=== PATIENT | male | born 1965 | race Caucasian/White ===

== ENCOUNTER 2017-03-24 12:37 | Emergency (ER) | payer MEDICAID, SELFPAY ==
[2017-03-24 12:38] VITALS: BP 144/102; PULSE 80; RESP 16; TEMP 36.5; O2SAT 94; BMI 23.5
--- NOTE | 2017-03-24 12:51 | ED.DCSUM_ITS ---
- ER Visit Summary Date of Service: 03/24/17 Chief Complaint: Food stuck in throat History of Present Illness: The patient is a 51 M who was eating roast beef for lunch and feels like some stuck in his throat. He has a history of this in the past. He is scheduled for an EGD in a couple of weeks. He tried drinking water and jumping up and down but it did not help. He regurgitated back the water he tried to swallow. Denies any other pain. Physical Examination: Vital signs reviewed. HEENT exam unremarkable. Heart is regular rate and rhythm without murmurs. Lungs are clear to auscultation. Abdomen is soft and nontender. Extremities reveal no edema. Skin exam normal. Neurologic exam normal. Test Results: None indicated Emergency Department Course and Treatment: Patient was given IV glucagon and Coca-Cola. After about 20 minutes he felt the food go down his esophagus into the stomach. He is tolerating p.o. at this time. Patient already has an outpatient EGD scheduled. I will put him on a PPI and he will follow-up with his surgeon Treatment Plan: [] Disposition: Discharge Impression: Esophageal food impaction This note was generated with [employer] dictation software. It may contain incorrect words, spelling, and punctuation that were not noted in review of the chart prior to signing ED Disposition - Plan for ED Patient: Chief Complaint: Foreign Body Referrals: NOT,DEFINED [NON-STAFF] -
[2017-03-24] MEDS: Glucagon 1 MG/ML Syringe IV (13:05)
--- NOTE | 2017-03-24 13:41 | ED.RN ---
pt rings wang. states the roastbeef went down. pt sucessfully drinking
--- NOTE | 2017-03-24 13:55 | ED.DEP ---
ED Disposition - Plan for ED Patient: Disposition: Home or Assisted Living Chief Complaint: Foreign Body Instructions: ED Foreign Body Esophageal Rslv Prescriptions: Omeprazole [Prilosec] 20 mg PO DAILY #30 cap Referrals: NOT,DEFINED [NON-STAFF] -
[2017-03-24 14:14] VITALS: BP 130/74; PULSE 68; RESP 18; O2SAT 97
== END 2017-03-24 14:20 | disposition home or self-care (01) ==
PROVIDERS: Emergency Provider Emergency Medicine
DX: T18.128A Food in esophagus causing other injury, initial encounter (principal); X58.XXXA Exposure to other specified factors, initial encounter; Y93.89 Activity, other specified; Y92.9 Unspecified place or not applicable
CPT/HCPCS: 96374; 99283; A4216; J1610

== ENCOUNTER → 2017-04-07 08:17 | Outpatient (CLI) | payer MEDICAID, SELFPAY ==
[2017-03-13 13:43] VITALS: BP 112/75; BMI 22.7
--- NOTE | 2017-04-07 08:30 | RAD_ITS ---
STUDY: X-RAY - ESOPHAGUS (BARIUM SWALLOW) WITH FLUOROSCOPY REASON FOR EXAM: Male, 51 years old. Dysphagia for solids. TECHNIQUE: 12 view(s) of the esophagus were obtained following swallowing of barium. FLUOROSCOPY TIME (if supplied): (0:47) minutes/seconds COMPARISON: None. FINDINGS: There is no demonstrated esophageal foreign body. There is no demonstrated stricture or mucosal abnormality. Normal gastroesophageal junction, without a demonstrated hiatal hernia. The patient ingested a 12 mm tablet of barium without any difficulty. Normal visualized aortic arch and descending thoracic aorta. Normal visualized pulmonary parenchyma. Normal visualized osseous structures of the thorax. IMPRESSION: Normal plain film x-ray examination (barium swallow) of the esophagus. Electronically Signed: Jon Gallardo MD at 9:51 EST Tel [phone], Service support , STUDY: AIR-CONTRAST UPPER GI SERIES. REASON FOR EXAM: Male, 51 years old. Six-month history of dysphagia for solids. FLUOROSCOPY TIME (if supplied): (0:47) minutes/seconds TECHNIQUE: The patient ingested barium. Multiple images of the esophagus, stomach and duodenum were obtained. COMPARISON: None. FINDINGS: The esophagus is unremarkable. There is no evidence of gastroesophageal reflux. No mass lesion is seen. The stomach and duodenum are unremarkable as well. RAD/Upper GI w/BA Swallow IMPRESSION: Unremarkable air-contrast upper GI series. Electronically Signed: Jon Gallardo MD at 9:53 EST Tel [phone], Service support ,
== END ==
PROVIDERS: Visit Provider Surgery
DX: R13.10 Dysphagia, unspecified (principal)
CPT/HCPCS: 74246

== ENCOUNTER → 2017-04-11 16:19 | Outpatient (CLI) | payer MEDICAID, SELFPAY ==
--- NOTE | 2017-04-11 16:25 | EKG12_ITS ---
Test Reason : MEDS Blood Pressure : / mmHG Vent. Rate : 074 BPM Atrial Rate : 074 BPM P-R Int : 178 ms QRS Dur : 086 ms QT Int : 384 ms P-R-T Axes : 072 043 062 degrees QTc Int : 426 ms Normal sinus rhythm Normal ECG Confirmed by LUCIAN SANTAMARIA, MARILEE ([id number]), technical editor VIVI ÁLVAREZ ([id number]) on 04/15/2017 3:47:44 PM Referred By: OUT DOCTOR Confirmed By:MARILEE EPSTEIN MD
== END ==
DX: Z79.891 Long term (current) use of opiate analgesic (principal)
CPT/HCPCS: 93005

== ENCOUNTER 2017-04-14 06:53 | Day surgery (SDC) | payer MEDICAID, SELFPAY ==
[2017-03-13 13:43] VITALS: BP 112/75; BMI 22.7
[2017-04-14 07:19] VITALS: BP 113/83; PULSE 75; RESP 16; TEMP 36.6; O2SAT 100; BMI 24.0
--- NOTE | 2017-04-14 08:28 | GASB_PTH ---
PATIENT: SANA GUIDRY Jr. LOC: EN U#:[id number] AGE/SX: 51/M ROOM: RE04/14/[address]: Dr. Aliyah Leija MD : 1965 BED: DIS: 04/14/2017 SPEC #: [id number] RECD: 04/14/17 11:03 STATUS: ELLA SERJIO #: [id number] CRISTAL: 04/14/17 08:[address]: Aliyah Leija DEPT: SURGICAL PATHOLOGY RECD BY: Foreign Ewing ENTERED: 04/14/17 11:50 SP TYPE: Gastric Bx OTHR DR: Taniya [facility] Tissues: A - Gastric mucous membrane B - Sigmoid colon biopsy C - Rectum, NOS Procedures: Special Stain Group II Surgery Specimen Level IV Alcian Blue/PAS (control) HEADER OPERATION: EGD with biopsy and colonoscopy with polypectomy PRE-OP DIAGNOSIS: Dysphagia TISSUE SUBMITTED: A ? GE junction biopsy, B ? Sigmoid polyps, C ? Rectum polyps MICROSCOPIC DIAGNOSIS A. Gastroesophageal junction, biopsy: Fragments of gastric mucosa with chronic and focal acute inflammation. Focal squamous epithelium with changes of reflux. No evidence of intestinal metaplasia. B. Sigmoid colon polyps, biopsy: Cauterized fragments of colonic mucosa with focal adenomatous change. C. Rectal polyps, biopsy: Fragments of hyperplastic polyp. AM:leatha 04/15/17 COMMENT A. Alcian blue/PAS stain with matched control supports the above diagnosis. MICROSCOPIC DESCRIPTION Slides are reviewed. GROSS DESCRIPTION A - Received in fixative is one container labeled with the patient's name and designated GE junction biopsy. The specimen consists of one irregular fragment of light adrian soft tissue that measures 0.3 x 0.3 x 0.1 cm. The specimen is totally submitted in one cassette. B - Received in fixative is one container labeled with the patient's name and designated sigmoid polyp. The specimen consists of multiple irregular fragments of light adrian soft tissue that in aggregate measure 0.5 x 0.2 x 0.1 cm. The specimen is totally submitted in one cassette. C - Received in fixative is one container labeled with the patient's name and designated rectum polyp biopsy. The specimen consists of multiple irregular fragments of light adrian soft tissue that in aggregate measure 0.8 x 0.9 x 0.2 cm. The specimen is totally submitted in one cassette. / DAYANNA:leatha 04/14/17 TC:5 CPT: 55986 x3, 00494
--- NOTE | 2017-04-14 08:28 | GASB_PTH ---
PATIENT: SANA GUIDRY Jr. LOC: EN U#:[id number] AGE/SX: 51/M ROOM: RE04/14/[address]: Dr. Aliyah Leija MD : 1965 BED: DIS: 04/14/2017 SPEC #: [id number] RECD: 04/14/17 11:03 STATUS: ELLA SERJIO #: [id number] CRISTAL: 04/14/17 08:[address]: Aliyah Leija DEPT: SURGICAL PATHOLOGY RECD BY: Foreign Ewing ENTERED: 04/14/17 11:50 SP TYPE: Gastric Bx OTHR DR: Taniya [facility] Tissues: A - Gastric mucous membrane B - Sigmoid colon biopsy C - Rectum, NOS Procedures: Special Stain Group II Surgery Specimen Level IV Alcian Blue/PAS (control) HEADER OPERATION: EGD with biopsy and colonoscopy with polypectomy PRE-OP DIAGNOSIS: Dysphagia TISSUE SUBMITTED: A ? GE junction biopsy, B ? Sigmoid polyps, C ? Rectum polyps MICROSCOPIC DIAGNOSIS A. Gastroesophageal junction, biopsy: Fragments of gastric mucosa with chronic and focal acute inflammation. Focal squamous epithelium with changes of reflux. Focal intestinal metaplasia present. B. Sigmoid colon polyps, biopsy: Cauterized fragments of colonic mucosa with focal adenomatous change. C. Rectal polyps, biopsy: Fragments of hyperplastic polyp. AM:rg 04/15/17 AM: 05/07/17 COMMENT A. Alcian blue/PAS stain with matched control supports the above diagnosis. Case has been reviewed in consultation with Dr. Freed who concurs with the above diagnosis. IDC:SJ MICROSCOPIC DESCRIPTION Slides are reviewed. GROSS DESCRIPTION A - Received in fixative is one container labeled with the patient's name and designated GE junction biopsy. The specimen consists of one irregular fragment of light adrian soft tissue that measures 0.3 x 0.3 x 0.1 cm. The specimen is totally submitted in one cassette. B - Received in fixative is one container labeled with the patient's name and designated sigmoid polyp. The specimen consists of multiple irregular fragments of light adrian soft tissue that in aggregate measure 0.5 x 0.2 x 0.1 cm. The specimen is totally submitted in one cassette. C - Received in fixative is one container labeled with the patient's name and designated rectum polyp biopsy. The specimen consists of multiple irregular fragments of light adrian soft tissue that in aggregate measure 0.8 x 0.9 x 0.2 cm. The specimen is totally submitted in one cassette. / SJ:rg 04/14/17 TC:5 CPT: 02376 x3, 57246
[2017-04-14 09:22] VITALS: BP 103/70; BP 113/83; PULSE 59; RESP 16; TEMP 36.4; O2SAT 97
--- NOTE | 2017-04-14 09:23 | PCM.OPRPT ---
Report of Operation Date of Procedure: 04/14/17 Pre-Operative Diagnosis: Dysphasia, screening for colon cancer Post-Operative Diagnosis: Dysphasia, GERD, sigmoid polyps ?2, rectal polyps ?5 Surgery/Procedure Performed:: EGD with biopsy, colonoscopy with snare polypectomy Type of Anesthesia:: MAC Anesthesiologist: Angelo Youssef Specimen's removed: 1. GE junction, 2. Sigmoid polyps, 3. Rectal polyps Estimated Blood Loss (mL): Minimal Description of Procedure: Procedure: EGD with biopsy After obtaining informed consent, the endoscope was passed under direct visualization. Throughout the procedure, patient's blood pressure, pulse, oxygen saturations were monitored continuously by anesthesia. The endoscope was introduced through the mouth and advanced to the 2nd part of the duodenum. The upper GI endoscopy was accomplished without difficulty. Patient tolerated procedure well. Findings: Mild change of mucosa found at the GE junction, proceed. Biopsies were taken with cold forcep biopsy for histology. Estimated blood loss was minimal. The duodenum was normal. Impression: 1. Mild change of mucosa at GE junction. Biopsied. 2. Normal esophagus 3. Normal examined duodenum Recommendations: Await biopsies Procedure: Colonoscopy with snare Polypectomy After reviewing the risks benefits, the patient was deemed in satisfactory condition to undergo procedure. After obtaining informed consent, the scope was passed under direct visualization. Throughout the procedure, the patient's blood pressure pulse and position saturations were monitored continuously anesthesia. The colonoscope was introduced through the anus and advanced to the cecum, identified by the appendiceal orifice, IC valve and transillumination. The colonoscopy was performed without difficulty. The patient tolerated procedure well. Quality of bowel prep was good. Findings: The perianal and digital rectal exam were normal. Couple small sessile polyps were found in the sigmoid colon laser removed with snare polypectomy as well as cold forceps biopsies. Additional 5 rectal polyps also small sessile were removed with either the snare polypectomy or the cold forceps biopsy. Otherwise the colon (entire examined portion) appeared normal. Retroflexed view of the distal rectum and anal verge was normal and showed no anal or rectal abnormalities Impression: 1. Sigmoid colon polyps ?2, rectal colon polyp ?5 all small sessile, removed. 2. The distal rectal and anal verge were normal on retroflexed view. Recommendations: Await biopsies Repeat colonoscopy in 3-5 years for screening purposes depending on biopsies - Complications none
[2017-04-14 09:27] VITALS: BP 109/74; BP 113/83; PULSE 64; RESP 16; O2SAT 99
[2017-04-14 09:32] VITALS: BP 104/79; BP 113/83; PULSE 61; RESP 16; O2SAT 95
[2017-04-14 09:37] VITALS: BP 113/83; BP 119/87; PULSE 60; RESP 16; TEMP 36.6; O2SAT 98
[2017-04-14 10:07] VITALS: BP 113/83
== END 2017-04-14 10:13 | disposition home or self-care (01) ==
LOC: EN 06:54 → AC 06:56
PROVIDERS: Visit Provider Surgery
PROC: 0DJD8ZZ Inspection of Lower Intestinal Tract, Via Natural or Artificial Opening Endoscopic (ICD-10-PCS; CPT 45378; principal; 2017-04-14 07:55)
DX: Z12.11 Encounter for screening for malignant neoplasm of colon (principal); D12.5 Benign neoplasm of sigmoid colon; K62.1 Rectal polyp; K21.0 Gastro-esophageal reflux disease with esophagitis; R13.10 Dysphagia, unspecified; Z87.891 Personal history of nicotine dependence
CPT/HCPCS: 43239; 45380; 45385; 88305; 88313; J7120

== ENCOUNTER 2017-04-27 10:29 | Emergency (ER) | payer MEDICAID, SELFPAY ==
[2017-04-27 10:29] VITALS: BP 125/63; PULSE 84; RESP 16; TEMP 36.6; O2SAT 96; BMI 24.9
--- NOTE | 2017-04-27 10:47 | RAD_ITS ---
STUDY: X-RAY CHEST REASON FOR EXAM: Male, 51 years old. Cough. TECHNIQUE: PA and lateral views of the chest. COMPARISON: Prior comparison studies are not available for review at this time. FINDINGS: There is hyperinflation of the lungs consistent with chronic obstructive lung disease (COPD). There is mild interstitial thickening visible in both lungs possibly secondary to pulmonary fibrosis. There may be a bilateral basilar interstitial consolidations and peribronchial cuffing. There is no demonstrated pleural abnormality. There is a well-circumscribed lucency apparently within the anterior mediastinum that may represent a large bleb or bulla. Normal size heart. Normal mediastinum and talia. There is prominence of the pulmonary hilar arteries without peripheral pulmonary vascular congestion. There is atherosclerotic calcification of the aortic arch with tortuosity. There is demineralization of the osseous structures. Multiple plate and screws are visible in the region of the left shoulder probably related to previous open reduction and internal fixation. There is no demonstrated abnormality of the visualized soft tissue structures of the upper abdomen. RAD/Chest PA and Lateral IMPRESSION: COPD with questionable bilateral basilar interstitial consolidations. Differential considerations include bronchitis, viral infection or mycoplasma pneumonitis. Electronically Signed: Laura Rice MD at 11:39 EDT , Service support ,
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
[2017-04-27 10:56] VITALS: PULSE 80; RESP 16
[2017-04-27] MEDS: Ipratropium/Albuterol Sulfate 3 ML AMPUL.NEB INHALATION (10:56)
--- NOTE | 2017-04-27 11:56 | ED.DEP ---
ED Disposition - Plan for ED Patient: Chief Complaint: Cold Sx Instructions: ED Upper Resp Infec Abx Tx, Pneumonia Treatment Prescriptions: Albuterol Inhaler [Ventolin Hfa] 1 - 2 puff INHALATION Q4H PRN PRN #1 inhaler PRN Reason: Wheezing Azithromycin [Zithromax Z-Antwon] 250 mg PO UD #1 box Referrals: [facility],Taniya Manning [Primary Care Provider] -
[2017-04-27 12:05] VITALS: BP 128/62; PULSE 82; RESP 18; O2SAT 98
== END 2017-04-27 12:09 | disposition home or self-care (01) ==
PROVIDERS: Emergency Provider Emergency Medicine
DX: J18.9 Pneumonia, unspecified organism (principal); J06.9 Acute upper respiratory infection, unspecified; K12.2 Cellulitis and abscess of mouth
CPT/HCPCS: 71046; 94640; 99282

== ENCOUNTER 2017-09-08 07:17 | Emergency (ER) | payer MEDICAID, SELFPAY ==
[2017-09-08 07:17] VITALS: BP 140/85; PULSE 86; RESP 16; TEMP 37.2; O2SAT 97; BMI 23.7
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
== END 2017-09-08 09:13 | disposition home or self-care (01) ==
PROVIDERS: Emergency Provider Emergency Medicine
DX: S16.1XXA Strain of muscle, fascia and tendon at neck level, initial encounter (principal); V59.40XA Driver of pick-up truck or van injured in collision with unspecified motor vehicles in traffic accident, initial encounter; Y93.89 Activity, other specified; Y92.410 Unspecified street and highway as the place of occurrence of the external cause; Z72.0 Tobacco use
CPT/HCPCS: 72040; 99284

== ENCOUNTER 2018-10-10 07:58 | Observation (INO) | payer MEDICAID, SELFPAY ==
[2018-10-10] VITALS (9 sets, daily range): BP systolic 125–158; BP diastolic 61–88; PULSE 70–92; RESP 14–18; TEMP 36.2–36.9; O2SAT 93–99; BMI 22.7; BMI 24.3; BMI 25.0; BMI 25.1
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
--- NOTE | 2018-10-10 08:10 | EKG12_ITS ---
Test Reason : SOB Blood Pressure : / mmHG Vent. Rate : 073 BPM Atrial Rate : 073 BPM P-R Int : 184 ms QRS Dur : 076 ms QT Int : 386 ms P-R-T Axes : 079 063 075 degrees QTc Int : 425 ms Normal sinus rhythm Normal ECG Confirmed by ANTWAN SANTAMARIA, CELINA ([id number]), editorial manager JADA COBURN ([id number]) on 10/13/2018 11:46:55 AM Referred By: ARELY Confirmed By:CELINA MONCADA MD
[2018-10-10] MEDS: 0.9% Normal Saline 1,000 ML 150 ML IV ×4 (08:17→23:22)
[2018-10-10] MEDS: Aspirin 81 MG TAB.CHEW 324 MG PO (08:17)
[2018-10-10 08:26] LABS: Absolute Lymphocyte Count 0.77 X10^3/uL (0.83-4.51); Absolute Neutrophil Count 3.4 X10^3/uL (2.0-7.7); Basophil# 0.02 X10^3/uL; Basophil% 0.4 % (0-1); Eosinophil# 0.17 X10^3/uL; Eosinophils% 3.5 % (0-5); Hematocrit 45.2 % (40-54); Hemoglobin 15.5 g/dL (13.0-16.5); Lymphocyte # 0.77 X10^3/ul (4.0); Lymphocyte % 15.8 % (19-41); Mean Corp Hgb Conc 34.3 g/dL (32-36); Mean Corpuscular Hgb 33.7 pg (27.0-32.0); Mean Corpuscular Volume 98.3 fL (80-94); Mean Platelet Vol. 8.3 fl (6.2-12.0); Monocyte% 10.3 % (0-10); NRBC Flagged by Analyzer 0 % (0-5); Neutrophil % 69.8 % (47-70); Platelet Count 302 K/mm3 (150-450); RBC Distribution Width CV 13.2 % (11.6-14.6); RBC Distribution Width SD 47.8 fl (35.1-43.9); White Blood Count 4.9 K/mm3 (4.4-11.0)
[2018-10-10 08:44] LABS: Anion Gap 5 (5-15); BUN 18 mg/dL (7-18); BUN/Creat Ratio 19.2 RATIO (10-20); Calcium,Total 8.6 mg/dL (8.5-10.1); Chloride 107 mmol/L (98-107); Creatinine, Serum 0.94 mg/dL (0.70-1.30); EST Glomerular Filtration Rate 89 mL/min (>60); Est Glom Filt Rate - Afr Amer 108 mL/min (>60); Estimated Creatinine Clearance 93.84 ml/min; Glucose 104 mg/dL (74-106); Potassium 4.4 mmol/L (3.5-5.1); Sodium Level 140 mmol/L (136-145)
--- NOTE | 2018-10-10 09:13 | RAD_ITS ---
STUDY: X-RAY CHEST REASON FOR EXAM: Male, 52 years old. Post Chest Tube left pneumothorax. TECHNIQUE: Single AP portable view of the chest. COMPARISON: 10 October 2018. FINDINGS: Left chest tube in place with Completely resolved left pneumothorax with minimal apical pneumothorax remaining. The lungs are clear and expanded. There is no demonstrated pleural abnormality. Normal size heart. Normal mediastinum and talia. Normal visualized pulmonary arteries. Normal visualized aortic arch and descending thoracic aorta. Normal visualized thoracic spine. Normal visualized ribs, clavicles, and shoulders. There is no demonstrated abnormality of the visualized soft tissue structures of the upper abdomen. RAD/Chest 1 View (Portable) IMPRESSION: Left chest tube in place with near completely resolved left pneumothorax compared to previous with minimal apical pneumothorax remaining. Electronically Signed: Mike Anna DO at 9:39 EDT , Service support ,
[2018-10-10] MEDS: LORazepam 2 MG/ML Syringe 1 MG IV (09:23)
[2018-10-10] MEDS: HYDROmorphone 1 MG/ML Syringe IV (09:23)
--- NOTE | 2018-10-10 09:50 | ED.VISSUMM ---
- ER Visit Summary Date of Service: 10/10/18 Chief Complaint: Chest pain History of Present Illness: The patient is a 52 M with no primary care physician. He reports that at 245 he woke from sleep and states that he had chest pain at that time. States that he was groggy and did not think much of it. Went back to sleep. Woke up at 430 this morning with worsening pain that he describes as a pressure. It is 8 out of 10 at worst and 6 out of 10 currently. Is worsened by exertion and bending over. Is relieved by nothing. Reports he has been nauseated. He has been short of breath as well. Patient reports that he is never had anything like this before. He denies any chest pain or change in dyspnea exertion in the past month. He does have a history of smoking. However, he reports that he quit 7 years ago. He denies any fever or chills. He reports he has a mild cough that began this morning only. It is nonproductive. He denies any other complaints. Physical Examination: Vitals: Stable. Afebrile. General: Well-nourished and well-developed. Head: Normocephalic atraumatic. Neck: Supple, no lymphadenopathy. No JVD. Nontender. Cardiovascular: Regular rate and rhythm. No murmurs. Respiratory: No respiratory distress. Clear to auscultation bilaterally. Abdominal: Soft, nontender, nondistended, normal bowel sounds. No guarding, rebound, or peritoneal signs. Back: Nontender. Extremities: Nontender, no edema. Skin: Normal color, no rash. Neurologic: Alert and oriented ?3. Cranial nerves II through XII are intact. Normal strength and sensation. Psych: Normal affect. Test Results: EKG is sinus at 73 with no acute changes. Is unchanged from April 2017. Troponin is negative. CBC shows leukocytes 16. Chem-7 is normal. Clinical Impression(s) from Imaging Studies Chest X-Ray 10/10/18 08:10 IMPRESSION: Large left pneumothorax measuring likely 50% volume. Electronically Signed: Mike Anna DO at 9:00 EDT , Service support , Chest X-Ray 10/10/18 09:13 IMPRESSION: Left chest tube in place with near completely resolved left pneumothorax compared to previous with minimal apical pneumothorax remaining. Electronically Signed: Mike Anna DO at 9:39 EDT , Service support , Emergency Department Course and Treatment: Patient was initially given a dose of aspirin. When the chest x-ray was obtained it was clear that he had a pneumothorax. He had a pneumothorax catheter placed on the left by me. He tolerated this well. Repeat x-ray shows his lung to be inflated. He did have mild pain following the procedure she was given a dose of Dilaudid IV. Treatment Plan: The patient was discussed with Dr. Palma. He will be admitted to the hospital for further evaluation and treatment. Disposition: Admitted in improved condition. Impression: 1. Spontaneous pneumothorax on left. 2. Pneumothorax catheter placed on the left by emergency department physician. Procedure note: Patient had the left chest wall cleansed with chlorhexidine and then Betadine. It was sterilely dressed. I wore a gown and mask. The procedure was done in a sterile fashion. The skin was anesthetized with 1% lidocaine without epinephrine. A small incision was made with an 11 blade. The pneumothorax catheter was placed on a syringe with lidocaine in it. As soon as bubbles appeared the needle was not further advanced and the catheter was advanced. He was placed on suction. The catheter was sewn in place. Xeroform gauze and a dressing were placed. He tolerated this well. This note was generated with cloudControl dictation software. It may contain incorrect words, spelling, and punctuation that were not noted in review of the chart prior to signing ED Disposition - Plan for ED Patient: Referrals: Care Physician,No Primary [Primary Care Provider] -
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
[2018-10-10] MEDS: HYDROmorphone 0.5 MG/0.5 ML SYRINGE IV ×3 (11:48→19:05)
[2018-10-10] MEDS: Methadone 10 MG Tablet PO ×2 (13:03→23:22)
--- NOTE | 2018-10-10 13:43 | NURSING ---
When administering Methdone 10mg, patient states I could just get some from my car. -Rock CERNA
--- NOTE | 2018-10-10 13:45 | NURSING ---
Pt dressed in street clothes, requested to have a staff member to get something from his car. Nurse said we can't get things from pt's cars, nurse said he could call a family member to get things from his car. States he doesn't have fm, however, before nurse pt's room, he was looking through his phone to call someone.
--- NOTE | 2018-10-10 13:54 | NURSING ---
Pt was informed if he has his own methadone brought from the car, he may not use it here, and it would need to be locked up. He verbalized understanding.
--- NOTE | 2018-10-10 15:00 | RAD_ITS ---
STUDY: X-RAY CHEST REASON FOR EXAM: Male, 52 years old. Follow-up. Chest tube placed this morning for pneumothorax TECHNIQUE: Single AP portable view of the chest. COMPARISON: None. FINDINGS: Small left-sided pigtail chest tube is noted. There is a questionable tiny left apical pneumothorax. Lungs are otherwise clear. Remainder is stable RAD/Chest 1 View (Portable) IMPRESSION: Small left pigtail chest tube. Questionable tiny left apical pneumothorax. Remainder is within normal limits Electronically Signed: Bennie Magallon DO at 21:42 EDT Tel , Service support ,
[2018-10-10] MEDS: 0.9% NaCl Peripheral Flush Adult/Peds IV ×2 (15:32→19:04)
--- NOTE | 2018-10-10 18:02 | NURSING ---
DECORATOR CONSULTANT reported pt had disconnected the chest tube and walked to the br on his own. Bed exit had been on, pt also has been informed to leave bed in low position multiple time and has been elevating it. He was informed it is on to prevent falls, since he is has a chest tube and needs to call for assistance to get up. Pt had been instructed if he needed to have a BM we would bring a bsc, however he did not call for assistance to go to the bathroom, and he acknowledged we had informed him about the bsc usage, and stated he didn't want to use. He was again reminded to leave the bed in low position and call for assistance to get out of bed.
--- NOTE | 2018-10-10 19:49 | NURSING ---
Went into room with morning nurse and let patient know I was putting him on camera, as I was informed patient had unhooked himself fro his chest tube to go to the bathroom without calling for help in going to the bathroom. ALF RN also stated patient had been putting his been all the way up in the air, and knew how to unlock his own bed. Patient had also asked day shift nurse to let him go out to his car because his to get his Methadone, Pt was told he could have family come and get it, but he was not allowed to go out. Patient said I could do this it was against his rights and wanted my name and to talk to my refractory products supervisor. Khadra Barreto was notified.
--- NOTE | 2018-10-10 20:21 | NURSING ---
Went into patients room to do vitals and assessment. Patient not very coorperative with assessment. I told patient I would be back in at 2200 with his Methadone. Patient told me if he was asleep not to wake him to give him the Methadone. Patient also told me not to wake him until morning to do focused assessment, because he wouldn't be able to fall asleep again. Charge nurse notified.
--- NOTE | 2018-10-10 20:40 | NURSING ---
This RN went to talk with pt at his request. Explained to the pt that we put the camera on for his safety since he was playing with the bed controls and unhooking his chest tube. Reminded him to please call for assistance we would come in and help him. Reminded him we would be checking on him throughout the night.
--- NOTE | 2018-10-10 23:05 | NURSING ---
Went in room at 2223 and patient was sleeping. Patient had told me during his assessment that if he was sleeping, not to wake him up for his Methadone, because he wouldn't be able to fall back asleep. Charted against Methadone.
[2018-10-11 03:15] VITALS: BP 160/111; PULSE 84; RESP 18; TEMP 36.6; O2SAT 96
[2018-10-11] MEDS: HYDROmorphone 0.5 MG/0.5 ML SYRINGE IV (03:15)
[2018-10-11 03:28] VITALS: RESP 18; O2SAT 96
[2018-10-11] MEDS: 0.9% Normal Saline 1,000 ML 150 ML IV (06:00)
[2018-10-11] MEDS: Methadone 10 MG Tablet PO (06:00)
[2018-10-11 07:32] VITALS: O2SAT 97
[2018-10-11 08:06] VITALS: PULSE 85; RESP 18; TEMP 37.2; O2SAT 99
--- NOTE | 2018-10-11 09:56 | RAD_ITS ---
STUDY: X-RAY CHEST REASON FOR EXAM: Male, 52 years old. Follow-up of left chest tube and pneumothorax. TECHNIQUE: Single frontal view of the chest. COMPARISON: October 10, 2018 FINDINGS: Left thoracostomy tube is stable with just a small portion of the tube in the left lung laterally. Small apical left pneumothorax. Stable mild hyperexpansion. There is no demonstrated pleural abnormality. Borderline cardiomegaly unchanged. Normal mediastinum and talia. Normal visualized pulmonary arteries. Normal visualized aortic arch and descending thoracic aorta. Normal visualized thoracic spine. Postsurgical changes of the left shoulder unchanged. There is no demonstrated abnormality of the visualized soft tissue structures of the upper abdomen. RAD/Chest 1 View (Portable) IMPRESSION: Stable appearance of the chest with no acute finding. Electronically Signed: Feliz Quinn MD at 12:55 EDT , Service support ,
[2018-10-11 10:09] VITALS: BP 129/75; PULSE 85; RESP 18; O2SAT 95
--- NOTE | 2018-10-11 11:17 | RAD_ITS ---
STUDY: X-RAY CHEST REASON FOR EXAM: Male, 52 years old. Status post chest tube removal. Evaluate for pneumothorax. TECHNIQUE: Frontal and lateral views of the chest. COMPARISON: Earlier in the day. FINDINGS: Left thoracostomy tube has been removed with residual small left apical pneumothorax with 1.5 cm of separation of visceral and parietal pleura. Hyperexpansion of both lungs with granulomatous calcifications unchanged. There is no demonstrated pleural abnormality. Stable borderline cardiomegaly. Normal mediastinum and talia. Normal visualized pulmonary arteries. Aortic tortuosity unchanged. Normal visualized thoracic spine. Stable postsurgical changes of the left glenohumeral joint and left acromioclavicular joint. There is no demonstrated abnormality of the visualized soft tissue structures of the upper abdomen. RAD/Chest PA and Lateral IMPRESSION: Removal of left thoracostomy tube with small left apical pneumothorax as described. Electronically Signed: Feliz Quinn MD at 12:32 EDT , Service support ,
--- NOTE | 2018-10-11 11:42 | PCM.PN.SRG ---
Subjective: Patient denies any new problems, please see nursing notes, patient has been noncompliant - he told the nurses upon admission that he was going to sign out AMA - Physical Exam General: Alert, Oriented x3 Oral: Moist Mucosa Neck: Supple Lungs: Clear to auscultation Cardiovascular: Regular rate Abdomen: Soft Vital Signs Temp Pulse Resp BP Pulse Ox 98.9 F 85 18 129/75 H 95 10/11/18 08:06 10/11/18 10:09 10/11/18 10:09 10/11/18 10:10/11/18 10:09 Oxygen Flow Rate (L/min) 2 Oxygen Delivery Method Room Air Weight: 79.52 kg Body Mass Index (BMI) 25.0 Intake and Output for Last 24 Hours 10/09/18 10/10/18 10/11/18 23:59 23:59 23:59 Intake Total 2262.5 / 2462.5 2235 / 2235 Output Total 525 / 1725 2800 / 2800 Balance 1737.5 / 737.5 -565 / -565 Medical Necessity - Tobacco Use Smoking Status: Former smoker Assessment/Plan Impression: left sided spontaneous pneumothorax Plan: pleural catheter removed without difficulty will check CXR - if OK - will D/C to home
== END 2018-10-11 13:20 | disposition home or self-care (01) ==
LOC: ED 08:30 → MS3 09:55
PROVIDERS: Admitting Provider Surgery; Emergency Provider Emergency Medicine; Visit Provider Surgery
DX: J95.811 Postprocedural pneumothorax (principal); G89.29 Other chronic pain; J44.9 Chronic obstructive pulmonary disease, unspecified; Z79.891 Long term (current) use of opiate analgesic; Z91.19 Patient's noncompliance with other medical treatment and regimen; Z87.891 Personal history of nicotine dependence
CPT/HCPCS: 32551; 71045; 71046; 80048; 84484; 85025; 93005; 96361; 96374; 96375; 96376; 99218; 99282; 99285; J7030; A4216; G0378

== ENCOUNTER 2018-10-11 18:05 | Emergency (ER) | payer MEDICAID, SELFPAY ==
[2018-10-10 10:41] VITALS: BMI 25.0
[2018-10-11 18:06] VITALS: BP 157/96; PULSE 94; RESP 20; TEMP 36.7; O2SAT 94; BMI 25.2
[2018-10-11 18:41] VITALS: O2SAT 95
--- NOTE | 2018-10-11 18:51 | ED.VIS.GEN ---
History of Present Illness Chief Complaint: Shortness of Breath Informant: Patient Onset: Today - several hrs ago Context: Sudden Onset - felt a pop or a thud in his left chest Timing: Continuous Quality: pressure, feels like can't take a breath easily Location: left chest Current Severity: Moderate Maximum Severity: Moderate Worsened by: exertion Relieved by: rest Associated Symptoms: no chest pain Narrative: Patient states yesterday he was diagnosed with a spontaneous pneumothorax, had a small caliber chest tube placed on the left side and was admitted overnight. He states this morning, they remove the tube and send him home. He states he now feels like the pneumothorax just recurred. Prior similar symptoms: Yes - w/ PTX Past Medical History - Allergies and Home Meds Allergies/Adverse Reactions: Allergies morphine Allergy (Verified 10/11/18 18:06) Shortness of breath prochlorperazine edisylate [From Compazine] Adverse Reaction (Verified 10/11/18 18:06) Other prochlorperazine maleate [From Compazine] Adverse Reaction (Verified 10/11/18 18:06) Other Primary Care Physician: Stephania Hua MD [STAFF PHYSICIAN] - 10/13/18 (call tues AM for appt) Surgical History: - - left shoulder Lives: Alone Smoking Status: Former smoker Review of Systems General: Denies: Chills, Fever, Sweats Eyes: Denies: Visual changes - bilaterally, Diplopia ENT: Denies: Rhinorrhea, Sore throat Cardiovascular: Reports: Chest pain. Denies: Palpitations, Heart racing Respiratory: Reports: Dyspnea. Denies: Cough Gastrointestinal: Denies: Abdominal pain, Nausea, Vomiting, Diarrhea, Melena, Hematochezia Genitourinary: Denies: Dysuria, Hematuria, Frequency Musculoskeletal: Denies: Back pain, Extremity Pain Skin: Denies: Rash, Wounds Neurological: Denies: Headache, Weakness, Numbness Physical Exam Vital Signs/Narrative: Vital Signs Temp Pulse Resp BP Pulse Ox 10/11/18 18:06 98.0 F 94 20 H 157/96 H 94 Inital Vital Signs reviewed: Yes General: Well nourished, Well developed, No Acute Distress Head: Normocephalic, Atraumatic Eyes: Perrl, EOMI ENT: Moist mucous membranes, No rhinorrhea Neck: Supple, Nontender, - - trachea midline Cardiovascular: Regular rate, Regular rhythm, No murmurs Respiratory: No distress, Chest nontender, Diminished - throughout left side Abdomen: Soft, Nontender, Nondistended, Normal bowel sounds Back: Nontender, Normal Inspection Extremities: Nontender, No edema Skin: Normal color, No rash, No Trauma Neurological: Alert, Oriented x3, Cranial nerves II-XII grossly intact, Normal Strength, Normal Sensation, Normal Gait Psychological: Normal affect, Normal Mood Diagnostic/Tx/Re-eval Chest X-Ray - ED: 2 View, Read by ED Physician, - - left pneumothorax, approx 40-50% Repeat two-view chest x-ray, read by ED physician, shows lung inflation and thoracostomy in good position. - Rhythm Strip Rhythm Strip: Sinus Rhythm Rate: 84 Ectopy: None - EKG Initial EKG Interpretation: Sinus Rhythm, No Acute Injury Pattern - Medical Decision Making Chest x-ray confirms what exam was suspicious for, significant left pneumothorax. No sign of a tension pneumothorax. Patient provided informed written consent for a repeat thoracostomy. I discussed with Dr. Hua prior to doing this, she agrees that if a small caliber tube at the second intercostal space resolve the pneumothorax, he may be sent home with a Heimlich valve and follow-up with her in a couple days. This was performed and the patient tolerated it well, chest x-ray confirms lung inflation. He will follow-up. Procedures Procedure(s): Left thoracostomy. Patient was prepped and draped in sterile fashion using Betadine, followed by chlorhexidine for anesthetization. Pneumothorax kit with small caliber thoracostomy and Heimlich valve was inserted by modified Seldinger technique after locally anesthetizing over top of the palpable second rib with a total of 5 cc of plain 1% lidocaine. The tube and needle were placed while applying suction with a syringe, air was immediately available after puncturing the pleura, and the tube was threaded over the needle which was then withdrawn. Good air alcazar was heard as the patient took breaths and the syringe was removed, this was replaced by a valve, and then the Heimlich valve. Patient continue taking deep breaths and coughing, resulting in improved symptoms. Chest x-ray shows lung inflation. ED Disposition - Plan for ED Patient: Disposition: Home or Assisted Living Diagnosis: Recurrent pneumothorax after chest tube removed Instructions: Chest Tubes, PNEUMOTHORAX, Spontaneous Referrals: Stephania Hua MD [STAFF PHYSICIAN] - 10/13/18 (call tues AM for appt)
--- NOTE | 2018-10-11 19:02 | RAD_ITS ---
STUDY: X-RAY CHEST REASON FOR EXAM: Male, 52 years old. 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 TECHNIQUE: PA and lateral views of the chest. COMPARISON: October 11, 2018 at 11:52 AM. FINDINGS: There is interval enlargement of the left sided pneumothorax. There is no left to right midline shift of the mediastinum. Normal size heart. Normal visualized aortic arch and descending thoracic aorta. Normal visualized thoracic spine. There are postsurgical changes of the left shoulder. There is no demonstrated abnormality of the visualized soft tissue structures of the upper abdomen. RAD/Chest PA and Lateral IMPRESSION: Interval enlargement of left pneumothorax. Electronically Signed: Naomi Cox MD at 19:52 EDT Tel , Service support ,
--- NOTE | 2018-10-11 19:20 | EKG12_ITS ---
Test Reason : SOB/CHEST PRESSURE Blood Pressure : / mmHG Vent. Rate : 084 BPM Atrial Rate : 084 BPM P-R Int : 182 ms QRS Dur : 080 ms QT Int : 362 ms P-R-T Axes : 072 063 070 degrees QTc Int : 427 ms Normal sinus rhythm Normal ECG Confirmed by ANTWAN SANTAMARIA, CELINA ([id number]), order editor JADA COBURN ([id number]) on 10/13/2018 11:36:30 AM Referred By: LORENZO Confirmed By:CELINA MONCADA MD
[2018-10-11 19:42] VITALS: BP 154/98; PULSE 77; RESP 18; O2SAT 95
--- NOTE | 2018-10-11 22:22 | RAD_ITS ---
STUDY: X-RAY CHEST REASON FOR EXAM: Male, 52 years old. Follow-up pneumothorax. Chest tube placement. TECHNIQUE: Frontal and lateral views of the chest. COMPARISON: Earlier today, 7:05 PM. FINDINGS: Since prior exam patient has a small bore chest tube positioned in the upper left hemithorax. Currently, no definite pneumothorax seen. Curvilinear density in the left lung base is most likely atelectasis or lateral border of a bulla. No effusions. Underlying COPD. Normal size heart. Normal mediastinum and talia. Normal visualized pulmonary arteries. Normal visualized aortic arch and descending thoracic aorta. Normal visualized thoracic spine. Extensive postsurgical changes of the left shoulder are stable. There is no demonstrated abnormality of the visualized soft tissue structures of the upper abdomen. RAD/Chest PA and Lateral IMPRESSION: No evidence of residual pneumothorax. Electronically Signed: Roberto Tim MD at 22:43 EDT , Service support ,
[2018-10-11 22:42] VITALS: BP 153/104; PULSE 81; RESP 16; O2SAT 97
== END 2018-10-11 22:43 | disposition home or self-care (01) ==
PROVIDERS: Emergency Provider Emergency Medicine
DX: J95.811 Postprocedural pneumothorax (principal); Z87.891 Personal history of nicotine dependence
CPT/HCPCS: 32551; 71046; 93005; 99282

== ENCOUNTER → 2018-10-22 12:49 | Outpatient (CLI) | payer MEDICAID, SELFPAY ==
[2018-10-15 06:39] VITALS: BMI 24.7
--- NOTE | 2018-10-22 12:55 | RAD_ITS ---
STUDY: X-RAY CHEST REASON FOR EXAM: Male, 52 years old. Left-sided chest pain following recent left thoracic surgery. Recent spontaneous pneumothorax. TECHNIQUE: PA and lateral views of the chest. COMPARISON: Comparison is made with prior study dated October 11, 2018. FINDINGS: The previously seen small-caliber left-sided chest tube has been removed. There is evidence of approximately 10% left pneumothorax with very diffuse subcutaneous emphysema overlying the left cervical region and left thoracic region. The patient is status post fusion of the left shoulder joint. Hyperinflation and scarring at the lung bases. Normal size heart. Normal mediastinum and talia. Normal visualized pulmonary arteries. Normal visualized aortic arch and descending thoracic aorta. Normal visualized thoracic spine. Normal visualized ribs, clavicles, and shoulders. There is no demonstrated abnormality of the visualized soft tissue structures of the upper abdomen. RAD/Chest PA and Lateral IMPRESSION: 10% left pneumothorax with diffuse left subcutaneous emphysema. Stable underlying scarring at the lung bases. Electronically Signed: Jon Gallardo, at 13:34 EDT , Service support ,
== END ==
PROVIDERS: Referring Provider Internal Medicine Critical Care Medicine; Visit Provider Internal Medicine Critical Care Medicine
DX: J93.83 Other pneumothorax (principal)
CPT/HCPCS: 71046

== ENCOUNTER → 2018-12-01 11:36 | Outpatient (CLI) | payer MEDICAID, SELFPAY ==
[2018-10-15 06:39] VITALS: BMI 24.7
--- NOTE | 2018-12-01 11:39 | RAD_ITS ---
STUDY: X-RAY CHEST REASON FOR EXAM: Male, 53 years old. Left-sided chest pressure. History of pneumothorax and thoracotomy. TECHNIQUE: PA and lateral views of the chest. COMPARISON: Comparison is made with prior study dated October 22, 2018. FINDINGS: Hyperinflation. Mild pleural parenchymal changes at the left lung base. No evidence of pneumothorax. Normal size heart. Normal mediastinum and talia. Normal visualized pulmonary arteries. There is atherosclerotic tortuosity of the aortic arch and descending thoracic aorta. Normal visualized thoracic spine. Prior ORIF of the left scapula. Healed left rib fractures. There is no demonstrated abnormality of the visualized soft tissue structures of the upper abdomen. RAD/Chest PA and Lateral IMPRESSION: Mild degree of pleural parenchymal changes at the left lung base. Electronically Signed: Jon Gallardo, at 14:15 EDT , Service support ,
== END ==
DX: R06.02 Shortness of breath (principal); R07.89 Other chest pain
CPT/HCPCS: 71046